=== PATIENT | male | born 1955 | race Caucasian/White ===

== ENCOUNTER 2025-05-13 16:02 | Emergency (ER) | payer MEDICARE ==
[~2025-05-13] VITALS: Ht 175.3 cm; Wt 84.6 kg
[2025-05-13] MEDS: LIDOCAINE 1% MDV 20 ML VIAL IM ONE (19:35)
[2025-05-13] MEDS ORDERED: CEPH500C PO (20:21)
[2025-05-13 20:27] VITALS: BP 158/95; TEMP 97.6; O2SAT 99
[2025-05-13] MEDS: CEPHALEXIN 500 MG CAP PO ONE (20:28)
== END 2025-05-13 20:37 | disposition home or self-care (01) ==
LOC: M ED 16:02
DX: S81.811A Laceration without foreign body, right lower leg, initial encounter (principal); Y92.019 Unspecified place in single-family (private) house as the place of occurrence of the external cause; Y93.9 Activity, unspecified; Y99.9 Unspecified external cause status; Z79.2 Long term (current) use of antibiotics